=== PATIENT | male | born 1990 | race Caucasian/White ===

== ENCOUNTER 2018-06-02 13:57 | Emergency (ER) | payer MEDICAID ==
[~2018-06-02] VITALS: Ht 177.8 cm; Wt 181.8 kg
[2018-06-02 14:07] VITALS: BP 143/66; Ht 177.8 cm; Wt 181.8 kg
== END 2018-06-02 16:02 | disposition left against medical advice (07) ==
LOC: D.ER 13:57
DX: M54.2 Cervicalgia (principal)